=== PATIENT | male | born 1975 | race Caucasian/White ===

== ENCOUNTER 2025-08-24 16:38 | Emergency (ER) | payer BC ==
[2025-08-24] MEDS ORDERED: Ketorolac Tromethamine 30 MG (1 mL) VIAL ONE (17:32)
== END 2025-08-24 17:59 | disposition home or self-care (01) ==
LOC: CSHERS 16:38
DX: G90.59 Complex regional pain syndrome I of other specified site (principal); I10 Essential (primary) hypertension
CPT/HCPCS: 96372; 99283; J1885; J2270